=== PATIENT | male | born 1990 | race American Indian/Alaskan Native ===

== ENCOUNTER 2021-08-23 21:33 | Emergency (ER) | payer OTHER ==
[2021-08-24 05:42] VITALS: BP 121/78
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
== END 2021-08-24 06:36 | disposition home or self-care (01) ==
LOC: ED 21:33
DX: S00.512A Abrasion of oral cavity, initial encounter (principal); S00.511A Abrasion of lip, initial encounter; T28.0XXA Burn of mouth and pharynx, initial encounter; Z88.0 Allergy status to penicillin; X58.XXXA Exposure to other specified factors, initial encounter; Y93.89 Activity, other specified; Y92.89 Other specified places as the place of occurrence of the external cause; Y99.8 Other external cause status
CPT/HCPCS: 99282